=== PATIENT | male | born 1985 | race Caucasian/White ===

== ENCOUNTER → 2018-04-18 10:12 | Outpatient (CLI) | payer OTHER, SELFPAY ==
--- NOTE | 2018-04-18 | DI.RAD.S_ITS ---
PROCEDURE: XR ANKLE LT MIN 3V INDICATIONS: ANKLE/FOOT PAIN TECHNIQUE: 3 views of the ankle were acquired. COMPARISON: None. FINDINGS: Bones: No fractures or dislocations. Ankle mortise is normally aligned. No suspicious bony lesions. Soft tissues: No tibiotalar joint effusion. Achilles tendon appears normal. Small rounded calcification over the dorsal margin of the distal talus. IMPRESSION: Normal ankle Dictated by: Jonh Morton M.D. on 04/18/2018 at 10:40 Approved by: Jonh Morton M.D. on 04/18/2018 at 10:41
--- NOTE | 2018-04-18 | DI.RAD.S_ITS ---
PROCEDURE: XR FOOT LT MIN 3V INDICATIONS: ANKLE/FOOT PAIN TECHNIQUE: 3 views of the foot were acquired. COMPARISON: None. FINDINGS: Bones: No fractures or dislocations. No suspicious bony lesions. Soft tissues: No tibiotalar joint effusion. Achilles tendon appears normal. Small calcification overlying the distal talus. IMPRESSION: Normal foot Dictated by: Jonh Morton M.D. on 04/18/2018 at 10:41 Approved by: Jonh Morton M.D. on 04/18/2018 at 10:43
== END ==
PROVIDERS: PCP Family Medicine; Visit Provider Family Medicine
DX: M25.572 Pain in left ankle and joints of left foot (principal)
CPT/HCPCS: 73610; 73630